=== PATIENT | male | born 1990 | race American Indian/Alaskan Native ===

== ENCOUNTER 2016-10-24 08:21 | Emergency (ER) | payer OTHER ==
[~2016-10-24] VITALS: Ht 152.4 cm; Wt 67.1 kg
[2016-10-24] MEDS ORDERED: VALA500T PO (08:31)
--- NOTE | 2016-10-24 09:52 | REP ---
SCROTAL ULTRASOUND: Real-time sonographic evaluation of the scrotum and contents performed. The testicles are normal in size and echotexture, right testicle measuring 4.6 x 2.5 x 2.7 cm and the left testicle 4.6 x 2.3 x 2.7 cm. There is no testicular mass or torsion. Blood flow is seen in each testicle with duplex Doppler evaluation, RI of the right testicle is 0.60 and the left testicle 0.49. No fluid collection or hematoma is seen. IMPRESSION: Negative scrotal ultrasound as discussed above. Signed by Mc Ha MD 10/24/2016 04:56 P
[2016-10-24 10:17] LABS: BASO % 0.6 % (0.0-1.0); EOS # 0.1 K/mm3 (0.0-0.50); EOS % 1.9 % (0.0-3.0); LARGE UNSTAINED CELL # 0.1 K/mm3 (0.0-0.4); LARGE UNSTAINED CELL % 1.4 % (0.0-4.0); LYMPH # 1.1 K/mm3 (1.5-6.5); LYMPH % 21.5 % (24.0-44.0); MEAN CORPUSCULAR HEMOGLOBIN 30.3 pg (27.0-33.0); MEAN CORPUSCULAR HGB CONC 33.3 g/dl (32.0-36.5); MEAN CORPUSCULAR VOLUME 90.8 fl (80.0-96.0); MONO # 0.3 K/mm3 (0.0-0.8); MONO % 5.4 % (0.0-5.0); NEUTROPHILS # 3.4 K/mm3 (1.8-7.7); NEUTROPHILS % 69.3 % (36.0-66.0); PLATELET COUNT, AUTOMATED 229 k/mm3 (150-450); RED CELL DISTRIBUTION WIDTH 12.8 % (11.5-14.5); WHITE BLOOD COUNT 4.9 K/mm3 (4.0-10.0)
[2016-10-24 10:38] LABS: ANION GAP 5 MEQ/L (8-16); BLOOD UREA NITROGEN 14 MG/DL (7-18); CALCIUM LEVEL 8.5 MG/DL (8.5-10.1); CARBON DIOXIDE LEVEL 28 MEQ/L (21-32); CHLORIDE LEVEL 108 MEQ/L (98-107); CREATININE FOR GFR 0.95 MG/DL (0.70-1.30); GLOMERULAR FILTRATION RATE > 60.0 (>60); GLUCOSE, FASTING 87 MG/DL (70-105); POTASSIUM SERUM 4.7 MEQ/L (3.5-5.1); SODIUM LEVEL 141 MEQ/L (136-145)
[2016-10-24 11:07] VITALS: BP 128/90
--- NOTE | 2016-10-24 11:13 | REP ---
KUB: Two views presented. History: Renal colic. Findings: There are calcific opacities overlying the renal silhouettes bilaterally. The largest of these is at the level of the lower pole of the right kidney measuring 4 mm in greatest diameter. There are three calculi projecting over the left kidney and two over the right. No ureteral calculi are seen. Psoas margins are symmetric. Bowel gas pattern is unremarkable Impression: Bilateral intrarenal nephrolithiasis. Signed by Gordon Sandoval MD 10/24/2016 03:27 P
--- NOTE | 2016-10-24 11:17 | REP ---
RENAL ULTRASOUND: Real-time sonographic evaluation of the kidneys is performed and demonstrates both kidneys to be normal size and echotexture, right kidney measuring 10.3 x 5.4 x 6.3 cm and the left kidney 10.8 x 5.5 x 5.5 cm. There is no hydronephrosis bilaterally. Multiple tiny calculi are seen in each renal collecting system less than 1 cm diameter. Largest cluster of calcifications on the right is in the lower pole about 7 mm in diameter in the left kidney in the upper aspect, 7 mm in diameter. No renal mass is seen. The urinary bladder is not distended and not evaluated. IMPRESSION: Multiple subcentimeter intrarenal calculi bilaterally without hydronephrosis. Signed by Mc Ha MD 10/24/2016 04:58 P
[2016-10-24] MEDS ORDERED: ZOFR4TAB3 PO (11:29)
[2016-10-24] MEDS ORDERED: IBUP80TA PO (11:29)
== END 2016-10-24 11:36 | disposition home or self-care (01) ==
LOC: M ED 08:57
DX: N50.812 Left testicular pain (principal); N23 Unspecified renal colic; N20.0 Calculus of kidney; Z87.442 Personal history of urinary calculi; F17.200 Nicotine dependence, unspecified, uncomplicated